=== PATIENT | female | born 2005 | race Caucasian/White ===

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

== ENCOUNTER 2024-03-31 18:47 | Emergency (ER) | payer MEDICAID ==
[2024-03-31 19:05] VITALS: BP 138/69
[2024-03-31 19:12] LABS: BASOPHILS # (AUTO) 0.1 10^3/uL (0.0-0.1); BASOPHILS % (AUTO) 0.7 %; EOSINOPHILS # (AUTO) 0.1 10^3/uL (0.0-0.7); EOSINOPHILS % (AUTO) 1.5 %; HCT - HEMATOCRIT 44.1 % (37.0-47.0); HGB - HEMOGLOBIN 13.1 g/dL (12.0-16.0); LYMPHOCYTES # (AUTO) 2.7 10^3/uL (1.5-3.5); LYMPHOCYTES % (AUTO) 28.5 %; MEAN CORPUSCULAR HEMOGLOBIN 27.1 pg (27.0-31.0); MEAN CORPUSCULAR HGB CONC 29.7 g/dL (32.0-36.0); MEAN CORPUSCULAR VOLUME 91.3 fL (81.0-99.0); MEAN PLATELET VOLUME 11.3 fL (7.9-10.8); MONOCYTES # (AUTO) 0.6 10^3/uL (0.0-1.0); MONOCYTES % (AUTO) 6.7 %; NEUTROPHILS # (AUTO) 5.8 10^3/uL (1.5-6.6); NEUTROPHILS % (AUTO) 61.2 %; PLT - PLATELET COUNT 279 10^3/uL (130-450); RED BLOOD COUNT 4.83 10^6/uL (4.20-5.40); RED CELL DISTRIBUTION WIDTH 13.3 % (12.0-15.0); WHITE BLOOD COUNT 9.5 x10^3/uL (4.8-10.8)
[2024-03-31 19:28] LABS: ALBUMIN 4.2 g/dL (3.2-5.5); ALBUMIN/GLOBULIN RATIO 1.4 (1.0-2.2); BILIRUBIN,TOTAL 0.5 mg/dL (0.2-1.0); CALCIUM 9.6 mg/dL (8.5-10.3); CREATININE 0.8 mg/dL (0.6-1.3); POTASSIUM 3.8 mmol/L (3.5-4.5); TOTAL PROTEIN 7.1 g/dL (6.4-8.9)
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
[2024-03-31 20:28] LABS: BILIRUBIN,URINE NEGATIVE (NEGATIVE); GLUCOSE, URINE (UA) NEGATIVE (NEGATIVE); KETONES,URINE (UA) NEGATIVE (NEGATIVE); LEUKOCYTE ESTERASE, URINE SMALL (NEGATIVE); NITRITE,URINE NEGATIVE (NEGATIVE); OCCULT BLOOD,URINE NEGATIVE (NEGATIVE); PH,URINE 6.5 PH (5.0-7.5); PROTEIN,URINE NEGATIVE (NEGATIVE); UROBILINOGEN,URINE 0.2 (NORMAL) E.U./dL (NORMAL)
[2024-03-31 20:32] LABS: CLARITY,URINE CLEAR (CLEAR); HCG UR QUAL NEGATIVE
[2024-03-31 20:51] LABS: BACTERIA,URINE Moderate /HPF (None Seen); RBC,URINE 0-5 /HPF (0-5); SQUAMOUS EPITHELIAL CELL,UR MOD Squamous (<= Few)
[2024-03-31] MEDS: KETOROLAC 30 MG/ML VIAL IVP STA (21:14)
--- NOTE | 2024-03-31 21:56 | Ultrasound Report ---
PROCEDURE: Pelvic w/Transvag+Doppler Comp INDICATIONS: R PELVIC PAIN, WORSENING TECHNIQUE: Real-time scanning was performed of the pelvic organs, with image documentation. Additional endovagi nal scanning was necessary due to incomplete visualization of the adnexal and endometrial structures by transabdominal scanning. Doppler interrogation was performed of the ovaries bilaterally. COMPARISON: Pelvic ultrasound 12/27/2023 FINDINGS: Uterus: Uterus is anteverted and normal in size at 7.1 x 3.8 x 5.0 cm. The myometrium is homogeneou s. The endometrium measures 10.4 mm in combined thickness. Ovaries: The right ovary measures 2.5 x 1.3 x 1.9 cm, with a calculated ovarian volume of 3.3 cc. T he left ovary measures 2.9 x 2.0 x 2.5 cm, with a calculated ovarian volume of 7.4 cc. Appropriate b lood flow to the ovaries with Doppler interrogation. Less than 12 follicles can be seen in each ova ry. No adnexal masses are seen. No cystic lesions measuring greater than 3 cm. Other: No pathologic free abdominal or pelvic fluid. Vascular flow is identified to the ovaries bila terally. IMPRESSION: No evidence of torsion. Unremarkable exam. Reviewed by: Jessica Banks MD on 03/31/2024 9:55 PM PDT Approved by: Jessica Banks MD on 03/31/2024 9:55 PM PDT Station ID: [id number]
[2024-03-31] MEDS ORDERED: iohexoL-300 100 ML VIAL ONE (22:21)
[2024-03-31] MEDS: iohexoL-300 100 ML VIAL IVP ONE (22:41)
--- NOTE | 2024-03-31 23:07 | CT Report ---
PROCEDURE: Abdomen/Pelvis W INDICATIONS: RLQ PAIN X MONTHS, WORSENING CONTRAST: OMNI 300, TECHNIQUE: After the administration of intravenous contrast, a CT scan of the abdomen and pelvis was performed. Images were recorded and evaluated at appropriate window settings. Reformats: coronal and sagittal. F or radiation dose reduction, the following was used: automated exposure control, adjustment of mA and /or kV according to patient size. COMPARISON: Pelvic ultrasound 03/31/2024 FINDINGS: Image quality: Diagnostic. Lower chest: Unremarkable. Liver: No solid mass. Gallbladder and biliary tree: Contracted but grossly unremarkable. Spleen: No splenomegaly. Pancreas: No pancreatic ductal dilation. Adrenals: No adrenal nodule. Kidneys and ureters: No hydronephrosis. No renal cystic lesion which requires follow up. No solid mas s. Stomach, bowel and peritoneum: No bowel distension. Appendix is not definitively identified. No right lower quadrant inflammatory change. Moderate colonic stool prominent in the right lower quadrant. Lymph nodes: No central or retroperitoneal adenopathy. Vessels: No infrarenal aortic aneurysm. IVC filter is present. PELVIS Reproductive organs: Unremarkable. Bladder: No abnormal wall thickening, accounting for underdistention. Pelvic lymph nodes: No pelvic adenopathy by size criteria. Bones: No aggressive osseous abnormality. Other: No significant ventral or inguinal hernia. Mild dependent pelvic fluid. IMPRESSION: The appendix is not visualized. No bowel obstruction. Prominent colonic stool particularly in the right lower quadrant. Reviewed by: Jessica Banks MD on 03/31/2024 11:05 PM PDT Approved by: Jessica Banks MD on 03/31/2024 11:05 PM PDT Station ID: [id number]
[2024-03-31 23:35] VITALS: O2SAT 100
== END 2024-03-31 23:27 | disposition home or self-care (01) ==
LOC: ED 18:47
DX: R10.31 Right lower quadrant pain (principal); M54.9 Dorsalgia, unspecified; G89.29 Other chronic pain
CPT/HCPCS: 36415; 74177; 76830; 76856; 80053; 81001; 81025; 83690; 85025; 93975; 96374; 99284; Q9967; 81003; 87086

== ENCOUNTER 2024-07-26 15:37 | Emergency (ER) | payer MEDICAID ==
[2024-07-26 15:57] VITALS: BP 140/70; O2SAT 100
--- NOTE | 2024-07-26 16:36 | ED Physician Documentation ---
PD HPI OPHTHO - Stated complaint Stated Complaint: ADHESIVE IN R EYE - Chief complaint Chief Complaint: Heent - Additional information Additional information: 19-year-old female presents emergency department after getting eyelash glue in her right eye. Eye is fully open she says that is irritated she feels like there is glue poking on her eyelid. She does not wear contacts she has no past medical history in regards to any eye disease or issues this happened just prior to arrival. 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 : None HEENT: None Psych: Depression Musculoskeletal: Chronic back pain Derm: None - Past Surgical History Past Surgical History: Yes Ortho: Arthroscopic surgery, Other - Present Medications Home Medications: Ambulatory Orders Medication Instructions Recorded Confirmed Atomoxetine HCl [Strattera] 40 mg PO DAILY 07/18/23 12/27/23 DULoxetine [Cymbalta] 20 mg PO DAILY 12/27/23 12/27/23 Oxycodone HCl/Acetaminophen 1 - 2 each PO Q6H PRN #14 tablet 12/27/23 [Percocet 5-325 mg Tablet] traMADol [Ultram] 50 mg PO Q4-6H #10 tablet 03/31/24 - Allergies Allergies/Adverse Reactions: Allergies Allergy/AdvReac Type Severity Reaction Status Date / Time amoxicillin [Amoxicillin] Allergy Intermediate hyperactive Verified 07/26/24 15:54 amoxicillin trihydrate * AdvReac Unknown Verified 07/26/24 15:54 [From Augmentin] potassium clavulanate * AdvReac Unknown Verified 07/26/24 15:54 [From Augmentin] - Social History Does the pt smoke?: No Smoking Status: Never smoker Does the pt drink ETOH?: Yes Does the pt have substance abuse?: Yes - Immunizations Immunizations are current?: Yes - POLST Patient has POLST: No PD ED PE NORMAL - Vitals Vital signs reviewed: Yes - General General: Alert and oriented X 3, No acute distress, Well developed/nourished PD ED PE EXPANDED - HEENT HEENT: PERRL, EOMI - Eyes Eyes: Visual acuity - see nn, PERRL, Normal accommodation, Right eye, Anterior chambers clear, Other (glue to eyelashes of right eye). No: Corneal abrasion, Fluorescein uptake Results - Vitals Vitals: Vital Signs - 24 hr 07/26/24 15:54 Temperature 36.5 C Heart Rate 78 Respiratory 16 Rate Blood Pressure 140/70 H O2 Saturation 100 Oxygen O2 Source Room air PD Medical Decision Making - ED course ED course: 19-year-old female presents emergency department for eyelash adhesive to right eye. Fluorescein exam does not show any fluorescein uptake she says that her vision is a little bit blurry she does not normally wear contacts. Lubricating gel was applied over the patient's right eye and did remove adhesive she had full range of motion to her eyes she is able to open her eyelid without any difficulty and there does not appear to be any abrasions to upper or lower eyelid. Patient was told to follow-up with ophthalmology in a couple days if no improvement of symptoms and was given some cooling gel to her right eye to help with pain and patient told how to manage this at home return precautions given all questions answered. Departure - Departure Disposition: 01 Home, Self Care Clinical Impression: Chemical insult, eye Instructions: ED Chemical Conjunctivitis Comments: Thank you for trusting us with your care. Going home you can apply the lubricant of your right eye for 15 to 20-minute periods of the time 4-5 times a day for discomfort and irritation. You can apply ice for 20 minutes at a time to your right eye and get [id number] eyedrops to help with any irritation or dryness. Please follow-up with your primary care provider as needed if after couple days your vision blurriness has not improved please follow-up with ophthalmology. Forms: PCP List Discharge Date/Time: 07/26/24 17:26
[2024-07-26] MEDS: PROPARACAINE 0.5% OPHTH DROPS 15 ML RIGHTEYE STA (17:00)
== END 2024-07-26 17:26 | disposition home or self-care (01) ==
LOC: ED 15:37
DX: S05.91XA Unspecified injury of right eye and orbit, initial encounter (principal); W44.G9XA Other non-organic objects entering into or through a natural orifice, initial encounter
CPT/HCPCS: 99283; 99284; J3490